=== PATIENT | female | born 1950 | race Caucasian/White ===

== ENCOUNTER → 2016-09-27 | Outpatient (CLI) | payer MEDICARE ==
--- NOTE | 2016-09-27 15:37 | RADRPT ---
EXAM DATE/TIME: 09/27/2016 00:00 [place] COMPARISON: No previous studies available for comparison. INDICATIONS : PVD, CLAUDICATION TECHNIQUE: Five-station segmental examination of the lower extremities was performed pre and post extercise. Pulsed-cuff waveform tracings and pressures were recorded. Ankle-brachial indices and toe-brachial indices were calculated. PRESSURES (mmHg): Pre Exercise: Brachial (arm): Left 141 Lower Thigh: Right 141 Left 139 Calf: Right 114 Left 134 Ankle: Right 109 Left 95 ALIZA: Right 0.77 Left 0.67 TBI: Right 0.64 Left 0.61 Post Exercise: Brachial (arm): Left 159 Ankle: Right 157 Left 117 PULSED CUFF WAVEFORMS: Demonstrate normal amplitude bilaterally. CONCLUSION: 1. Findings of mild to moderate disease bilaterally. There is mildly decreased toe brachial indices c haracteristics of small vessel disease. CT angiography of the abdominal aorta and lower extremities i s recommended for further evaluation if clinically indicated. Yefri Perez MD on September 27, 2016 at 15:34 Board Certified Radiologist. This report was verified electronically.
== END ==
LOC: HCAV 12:50
DX: I70.219 Atherosclerosis of native arteries of extremities with intermittent claudication, unspecified extremity (principal)
CPT/HCPCS: 93924